=== PATIENT | female | born 1965 | race Caucasian/White ===

== ENCOUNTER 2018-02-28 13:41 | Inpatient (IN) | payer MEDICAID ==
[~2018-02-28] VITALS: Ht 149.9 cm; Wt 63.3 kg
[2018-02-28 13:55] VITALS: Ht 149.9 cm; Wt 63.3 kg
[2018-02-28 15:48] LABS: BASOPHIL % 0.5 % (0-2); PLATELET COUNT 265 x10^3mcL (130-400)
[2018-02-28 15:50] LABS: RED CELL DISTRIBUTION WIDTH 14.6 % (11.5-14.5)
[2018-02-28 15:59] LABS: CALCIUM 8.9 mg/dL (8.5-10.1); CARBON DIOXIDE 25.9 mmol/L (21-32); CHLORIDE SERUM 104 mmol/L (98-107); CREATININE SERUM 0.7 mg/dL (0.6-1.0); GFR1 > 60 mL/min; GLUCOSE SERUM 96 mg/dL (74-106); POTASSIUM SERUM 3.8 mmol/L (3.5-5.1); SODIUM SERUM 139 mmol/L (136-145)
[2018-02-28 16:03] LABS: ALBUMIN 3.8 g/dL (3.4-5.0); ALKALINE PHOSPHATASE 86 U/L (46-116); ALT/SGPT 52 U/L (14-59); AST/SGOT 52 U/L (15-37); BILIRUBIN TOTAL 0.24 mg/dL (0.20-1.00)
[2018-02-28 16:05] LABS: TOTAL PROTEIN, SERUM 8.3 g/dL (6.4-8.2)
[2018-02-28] MEDS ORDERED: METFORMIN HCL500 MG PO ×2 (18:31→18:32)
[2018-02-28] MEDS ORDERED: ASPIRIN ADULT L81 M3 PO (18:33)
[2018-02-28 19:05] LABS: T3 TOTAL 1.16 ng/mL
[2018-02-28 19:07] LABS: CHOLESTEROL/HDL RATIO 4.3; MAGNESIUM 2.1 mg/dL (1.8-2.4); PHOSPHOROUS 3.5 mg/dL (2.5-4.9)
[2018-02-28 19:17] VITALS: BP 116/63
[2018-02-28 19:30] LABS: FREE T4 0.93 ng/dL (0.76-1.46); FREE THYROXINE INDEX 2.1 ug/dL (1.4-4.5); T4(THYROXINE) 7.4 ug/dL (4.7-13.3)
[2018-02-28 21:38] VITALS: BP 100/63
[2018-03-01 05:29] VITALS: BP 98/54
[2018-03-01 07:00] LABS: BASOPHIL % 0.4 % (0-2); PLATELET COUNT 223 x10^3mcL (130-400)
[2018-03-01 07:01] LABS: RED CELL DISTRIBUTION WIDTH 14.8 % (11.5-14.5)
[2018-03-01 07:17] LABS: AMYLASE 72 U/L (25-115); CALCIUM 8.5 mg/dL (8.5-10.1); CARBON DIOXIDE 22.5 mmol/L (21-32); CHLORIDE SERUM 108 mmol/L (98-107); CREATININE SERUM 0.7 mg/dL (0.6-1.0); GFR1 > 60 mL/min; GLUCOSE SERUM 96 mg/dL (74-106); MAGNESIUM 1.8 mg/dL (1.8-2.4); PHOSPHOROUS 3.8 mg/dL (2.5-4.9); POTASSIUM SERUM 4.1 mmol/L (3.5-5.1); SODIUM SERUM 143 mmol/L (136-145)
[2018-03-01 08:18] LABS: microscopic required? YES; urine erythrocyte TRACE (NEGATIVE)
[2018-03-01 08:28] VITALS: BP 96/53
[2018-03-01 10:38] LABS: AMPHETAMINE QUAL UR NONE DETECTED (See below)
[2018-03-01 13:13] VITALS: BP 104/58
[2018-03-01] MEDS ORDERED: LIPI10 PO (13:45)
[2018-03-01] MEDS ORDERED: COL100 PO (13:46)
[2018-03-01 15:21] VITALS: BP 104/58
[2018-03-01 16:48] VITALS: BP 121/63
[2018-03-01 20:21] VITALS: BP 96/53
[2018-03-02 05:21] VITALS: BP 102/54
[2018-03-02 06:58] LABS: BASOPHIL % 0.4 % (0-2); PLATELET COUNT 214 x10^3mcL (130-400)
[2018-03-02 07:00] LABS: CARBON DIOXIDE 25.5 mmol/L (21-32); CHLORIDE SERUM 106 mmol/L (98-107); CREATININE SERUM 0.6 mg/dL (0.6-1.0); GFR1 > 60 mL/min; GLUCOSE SERUM 106 mg/dL (74-106); POTASSIUM SERUM 3.8 mmol/L (3.5-5.1); SODIUM SERUM 140 mmol/L (136-145)
[2018-03-02 07:38] LABS: RED CELL DISTRIBUTION WIDTH 14.8 % (11.5-14.5)
[2018-03-02 08:59] VITALS: BP 98/60
[2018-03-02 10:10] VITALS: BP 83/48
[2018-03-02 11:46] VITALS: BP 99/56
[2018-03-02 11:55] VITALS: BP 99/56
[2018-03-02 12:15] VITALS: BP 106/59
== END 2018-03-02 15:35 | disposition home or self-care (01) | DRG 203 ==
LOC: ED 13:41 → DU 17:15
PROVIDERS: Emergency Medicine; Family Medicine
DX: M94.0 Chondrocostal junction syndrome [Tietze] (principal); G90.9 Disorder of the autonomic nervous system, unspecified; E11.9 Type 2 diabetes mellitus without complications; E78.5 Hyperlipidemia, unspecified; Z68.28 Body mass index [BMI] 28.0-28.9, adult; Z86.73 Personal history of transient ischemic attack (TIA), and cerebral infarction without residual deficits
CPT/HCPCS: 82962; 83880; 84439; J2060; J2405; J7030; Q0092

== ENCOUNTER 2018-04-05 08:56 | Emergency (ER) | payer MEDICAID ==
[~2018-04-05] VITALS: Ht 160 cm; Wt 59.4 kg
[~2018-04-05 08:56] MED LIST: ASPIRIN ADULT L81 M3 PO; COL100 PO; LIPI10 PO; METFORMIN HCL500 MG PO
[2018-04-05 09:05] VITALS: BP 112/67; Ht 160 cm; Wt 59.4 kg
== END 2018-04-05 10:28 | disposition home or self-care (01) ==
LOC: ED 08:56
DX: K08.89 Other specified disorders of teeth and supporting structures (principal); E78.00 Pure hypercholesterolemia, unspecified; Z86.73 Personal history of transient ischemic attack (TIA), and cerebral infarction without residual deficits
CPT/HCPCS: J0696

== ENCOUNTER 2018-09-03 22:22 | Emergency (ER) | payer MEDICAID ==
[~2018-09-03] VITALS: Ht 157.5 cm; Wt 63.5 kg
[2018-09-03 22:32] VITALS: Ht 157.5 cm; Wt 63.5 kg
[2018-09-03 23:18] LABS: CALCIUM 8.4 mg/dL (8.5-10.1); CARBON DIOXIDE 25.3 mmol/L (21-32); CHLORIDE SERUM 105 mmol/L (98-107); CREATININE SERUM 0.8 mg/dL (0.6-1.0); GFR1 > 60 mL/min; GLUCOSE SERUM 154 mg/dL (74-106); POTASSIUM SERUM 3.2 mmol/L (3.5-5.1); SODIUM SERUM 137 mmol/L (136-145)
[2018-09-04 01:06] VITALS: BP 118/70
== END 2018-09-04 01:06 | disposition home or self-care (01) ==
LOC: ED 22:22
PROVIDERS: Emergency Medicine
DX: E11.65 Type 2 diabetes mellitus with hyperglycemia (principal); R51 Headache; F41.9 Anxiety disorder, unspecified; E78.00 Pure hypercholesterolemia, unspecified; Z86.73 Personal history of transient ischemic attack (TIA), and cerebral infarction without residual deficits
CPT/HCPCS: 82962; J1885; J2060